=== PATIENT | female | born 2000 | race Caucasian/White ===

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

== ENCOUNTER 2018-01-03 17:38 | Emergency (ER) | payer SELFPAY ==
[2018-01-03 17:51] VITALS: BP 131/85
--- NOTE | 2018-01-03 18:36 | UC ---
Back Pain HPI - HPI Summary HPI Summary: 17 y/o female presents to the urgent care c/o Pt states numbness in left arm and sometimes in bilateral arms that has been going on greater than 1 year. Pt states she now has pain orginiating in her mid- back. Pt states spine is painful to palpation. Pt denies any incontinense. Pt denies any known trauma. - History of Current Complaint Chief Complaint: UCBackPain Stated Complaint: ARM, BACK PAIN Time Seen by Provider: 01/03/18 18:22 Hx Obtained From: Patient Hx Last Menstrual Period: 12/20/17 Onset/Duration: Gradual Onset, Lasting Weeks - 1 year on and off, Still Present , Worse Since - the past 2 weeks more often Timing: Intermittent, Lasting Minutes Severity Initially: Mild Severity Currently: Mild Pain Intensity: 3 Pain Scale Used: 0-10 Numeric Back Pain: Is Discrete @ - upper back and left shoulder pain, Radiates To - the left arm Character: Dull, Aching Aggravating Factor(s): Movement, Lifting Alleviating Factor(s): Rest, OTC Meds Associated Signs And Symptoms: Positive: Numbness, Tingling - left arm. Negative: Swelling, Redness, Bruising, Fever, Weakness, Abdominal Pain, Flank Pain, Bladder Incontinence, Bowel Incontinence, Weight Loss, Pain with Weight Bearing - Risk Factors AAA Risk Factors: Negative TAD Risk Factors: Negative Cauda Equina Risk Factors: Negative Epidural Abscess Risk Factors: Negative - Allergies/Home Medications Allergies/Adverse Reactions: Allergies Allergy/AdvReac Type Severity Reaction Status Date / Time No Known Allergies Allergy Verified 01/03/18 17:44 PMH/Surg Hx/FS Hx/Imm Hx Previously Healthy: Yes - Pt denies PMHX - Surgical History Surgical History: None - Family History Known Family History: Negative: Cardiac Disease, Hypertension, Diabetes, Seizure Disorder - Social History Occupation: Student Lives: With Family Alcohol Use: Occasionally Substance Use Type: None Smoking Status (MU): Never Smoked Tobacco - Immunization History Vaccination Up to Date: Yes Review of Systems All Other Systems Reviewed And Are Negative: Yes Constitutional: Positive: Negative Skin: Positive: Negative Eyes: Positive: Negative ENT: Positive: Negative Respiratory: Positive: Negative Cardiovascular: Positive: Negative Gastrointestinal: Positive: Negative Genitourinary: Positive: Negative Motor: Positive: Negative Neurovascular: Positive: Negative Musculoskeletal: Positive: Decreased ROM - left shoulder, Other: - upper back and left shoulder pain radiating to the left arm Neurological: Positive: Paresthesia - left arm, Numbness - and tingling sensation Psychological: Positive: Negative Is Patient Immunocompromised?: No Physical Exam - Summary Physical Exam Summary: Vital signs:reviewed General: Patient is a well developed female adolescent without any distress that is laying comfortably in the examining table w/o any apparent distress. Skin: [place], warm, dry HEAD AND FACE: No signs of trauma. EYES: PERRLA, EOMI x 2. EARS: Hearing grossly intact. MOUTH: Oropharynx within normal limits. NECK: Supple, trachea is midline, no cervical lymphadenopathy, no JVD, no carotid bruit, no c-spine tenderness, neck with decrease ROM on flexion and Rt lateral bending due to pain. No meningeal signs, no Kernig's or brudzinskis signs. Decrease ROM on bending forward and Rt lateral bending due to pain. CHEST: Symmetric, no tenderness at palpation LUNGS: CTA bilaterally, no rales, rhonchi or wheezing CVS: RRR, no murmur, rub, or gallop ABDOMEN: soft and Nontender without masses, no guarding or rebound. Bowel sounds are active. No Hepato-splenomegaly. No signs of inguinal hernias. BACK: Patient walked into the urgent care room with symmetric ambulation, No signs of limping, antalgic, able to bear weight. No signs of trauma, no soft tissue or muscle tenderness, Tenderness to palaption over T3-T4 w/ LF side paraspinal muscle spasm the same level. No masses palpated. Point tenderness at Rt shoulder blade, no swelling or ecchymosis observed, No CVAT, no flank ecchymosis . No sacroiliac notch tenderness, No saddle anesthesia.FROM: flexion / extension/ lateral bending and rotation, note if limited or causes pain Straight Leg Raise: negative.Patellar reflexes: brisk, symmetric Muscle strength lower extremities. Dorsiflexion/ plantar flexion of ankles. Heel/ toe walk Lower extremities: Femoral, popliteal, posterior tibial, and dorsalis pedis pulses with in normal, Neurological: WNL Psychological: WNL Skin: dry and warm Triage Information Reviewed: Yes Vital Signs: Initial Vital Signs Temp 98.0 F 01/03/18 17:45 Pulse 101 01/03/18 17:45 Resp 18 01/03/18 17:45 BP 131/85 01/03/18 17:45 Pulse Ox 98 01/03/18 17:45 Back Pain Course/Dx - Differential Dx/Diagnosis Differential Diagnosis/HQI/PQRI: Herniated Disc, Strain, Sprain, Other - scoliosis Provider Diagnoses: 1- Acute upper back pain. 2- upper back strain. 3-Muscle spasm. 4- left arm paresthesia Discharge - Sign-Out/Discharge Documenting (check all that apply): Patient Departure - d/c home - Discharge Plan Condition: Stable Disposition: HOME Prescriptions: Cyclobenzaprine TAB* [Flexeril 10 MG TAB*] 10 mg PO TID PRN #21 tab PRN Reason: Spasms - Back Ibuprofen TAB* [Motrin TAB* 600 MG] 600 mg PO Q6H PRN #30 tab PRN Reason: Pain Patient Education Materials: Thoracic Outlet Syndrome (ED), Muscle Spasm (ED), Thoracic Back Strain (ED) Forms: *Work Release Referrals: Christy Smalls DO [Primary Care Provider] - 2 Days Additional Instructions: 1- Please take Ibuprofen PO as directed after meals for pain. 2- Take Flexeril PO as directed for muscle spasm. Please do not drive while taking the medication. 3- Please Avoid strenuous exercise or heavy lifting. 4- Please follow up with your PCP in 1-2 days for further management on your symptoms 5- final radiology reports still pending, Final reading will be done. but there is probability you may have cervical ribs that may be causing your numbness and can lead to Thoracic outlet syndrome. You will be notified of final report - Billing Disposition and Condition Condition: STABLE Disposition: Home
--- NOTE | 2018-01-05 14:41 | UC ---
- Progress Note Progress Note: Patient Name: THANIA MAYNARD Medical Record#: [id number] Ordering Physician: Jumana CARRERA Acct.#: [id number] : 2000 Age: 17 Sex: F Location: [facility] Exam Date: 01/03/18 183 ADM Status: [facility] ER Order Information: SHOULDER LEFT 2+ VWS Accession Number: [id number] CPT: 18507 Indication: 1 year LEFT arm pain and numbness without proceeding injury increasing in the past few weeks. Comparison: October 19, 2016 chest radiograph. Technique: Internal rotation AP, external rotation Grashey, scapular Y, axillary views LEFT shoulder Report: Negative for fracture. Normal acromioclavicular and glenohumeral joint alignment. No arthropathic change evident. Unremarkable soft tissue contours. IMPRESSION: #. Negative exam. R0 Preliminary Imaging Read NO DISCREPANCY <Electronically signed by Vishnu Iverson MD in OV> 01/04/18803 Dictated By: Vishnu Iverson MD Dictated Date/Time: 01/04/18803 Transcribed Date/Time: 01/04/18802 Copy to: CC:Rommel Arroyo MD; Christy Smalls DO; Jumana CARRERA Imaging - [facility] Imaging - [facility] [address] [address] ph ([phone]) ph ([phone]) ph ([phone]) This report is only to be considered final once signed by the Provider(s) as displayed in the "<Electronically Signed by >" field (s). Absence of a signature indicates the report is in a draft status and still needs to be finalized. In the event this document was created by someone other than the signing Provider, the individual initiating the document will be listed in the "Entered by:" or "Dictated by:" waldron. 1 of 1 Patient Name: THANIA MAYNARD Medical Record#: [id number] Ordering Physician: Jumana CARRERA Acct.#: [id number] : 2000 Age: 17 Sex: F Location: [facility] Exam Date: 01/03/181832 ADM Status: DEP ER Order Information: THORACIC SPINE 2 VWS Accession Number: [id number] CPT: 22830 ADDENDUM Correlation made with May 19, [address] There is variant slight lateral and caudal elongation of the LEFT transverse process at C7 without dagmar cervical rib formation. <Electronically signed by Vishnu Iverson MD in OV>01/04/18905 Dictated by: Vishnu Iverson MD Dictated Date/Time:01/04/18905 Transcribed Date/Time: 01/04/18904 Copy to: Rommel Arroyo MD; Christy Smalls DO; Jumana CARRERA Indication: LEFT arm pain and numbness for one year without preceding injury increasing in the past few weeks. Comparison: October 19, 2016 Technique: Upright AP and lateral views thoracic spine. Report: Normal thoracic spine alignment. Negative for fracture or focal osseous lesions. Preserved disc spaces and unremarkable paraspinal soft tissue contours. IMPRESSION: #. Negative exam. R0 Preliminary Imaging Read NO DISCREPANCY <Electronically signed by Vishnu Iverson MD in OV> 01/04/18817 Dictated By: Vishnu Iverson MD Dictated Date/Time: 01/04/18817 Transcribed Date/Time: 01/04/18815 Copy to: This report is only to be considered final once signed by the Provider(s) as displayed in the "<Electronically Signed by >" field (s). Absence of a signature indicates the report is in a draft status and still needs to be finalized. In the event this document was created by someone other than the signing Provider, the individual initiating the document will be listed in the "Entered by:" or "Dictated by:" waldron. 1 of 2 Discharge - Sign-Out/Discharge Documenting (check all that apply): Post-Discharge Follow Up All imaging exams completed and their final reports reviewed: Yes - Discharge Plan Condition: Stable Disposition: HOME Prescriptions: Cyclobenzaprine TAB* [Flexeril 10 MG TAB*] 10 mg PO TID PRN #21 tab PRN Reason: Spasms - Back Ibuprofen TAB* [Motrin TAB* 600 MG] 600 mg PO Q6H PRN #30 tab PRN Reason: Pain Patient Education Materials: Thoracic Outlet Syndrome (ED), Muscle Spasm (ED), Thoracic Back Strain (ED) Forms: *Work Release Referrals: Christy Smalls DO [Primary Care Provider] - 2 Days Additional Instructions: 1- Please take Ibuprofen PO as directed after meals for pain. 2- Take Flexeril PO as directed for muscle spasm. Please do not drive while taking the medication. 3- Please Avoid strenuous exercise or heavy lifting. 4- Please follow up with your PCP in 1-2 days for further management on your symptoms 5- final radiology reports still pending, Final reading will be done. but there is probability you may have cervical ribs that may be causing your numbness and can lead to Thoracic outlet syndrome. You will be notified of final report - Billing Disposition and Condition Condition: STABLE Disposition: Home
== END 2018-01-03 19:37 | disposition home or self-care (01) ==
LOC: UCEAST 17:38
DX: S29.012A Strain of muscle and tendon of back wall of thorax, initial encounter (principal); M62.838 Other muscle spasm; R20.0 Anesthesia of skin; M54.6 Pain in thoracic spine; X58.XXXA Exposure to other specified factors, initial encounter; Y92.9 Unspecified place or not applicable
CPT/HCPCS: 72070; 99212; G0463